=== PATIENT | female | born 1995 ===

== ENCOUNTER 2018-03-21 02:55 | Inpatient (IN) | payer BC ==
--- NOTE | 2018-03-21 08:13 | HP ---
General Information - Reason for Visit Labor evaluation - General Information Maternal Age: 22 Grav: 1 Para: 1 SAB: 0 IEA: 0 Estimated Due Date: 03/22/18 Determined By: LMP Gestational Age in Weeks/Days: 39-/7 Maternal Blood Type and Rh: O Positive - Results this Serology/RPR Result: Non-Reactive Rubella Result: Immune HBsAg Result: Negative HIV Result: Negative GBS Culture Result: Negative Past Medical History Delivery History: See Records Delivery History Comment: Primip Pertinent Past Medical History: See Records Past Medical History Comment: H/O Depression/Anxiety. Has used Citalopram in the past Pertinent Past Surgical History: None Pertinent Family History: See Records Family History Comment: Mother and Father both A&W Brother: . Leukemia PGM: . Unknown PGF: . Old age MGM: . Cancer MGF: . Unknown - Antepartal Records Antepartal Records: Reviewed, Uncomplicated Review of Systems Constitutional: Uncomfortable - with UCs. Coping well CV Complaint: No Respiratory: Shortness of Breath: No Gastrointestinal: No Nausea/Vomiting, Normal Bowel Movement Genitourinary: No Dysuria, No Leaking Fluid, Spotting - s/p VE Musculoskeletal: Contractions Neurological: No Headache, No Visual Changes Movement: Normal Exam Allergies/Adverse Reactions: Allergies buspirone [From BuSpar] Allergy (Verified 03/20/18 21:47) Hives Vital Signs 03/21/18 05:35 Temperature 97.6 F Pulse Rate 58 Respiratory 16 Rate Blood Pressure 134/80 (mmHg) - Measurements Height: 5 ft 8 in Weight: 179 lb Weight in lbs: 179.720049 Body Mass Index (BMI): 27.2 Pre- Weight: 143 lb Weight Gained This : 36 lbs and 0 ozs - Exam Breast: Breast Exam Deferred CVA: No CVA Tenderness Extremities: No Edema Heart: Normal Rhythm/Heart Sounds HEENT: No Significant Findings Lungs: Clear Bilaterally Rectal: Rectal Exam Deferred Reflexes: DTR 2+ Thyroid: No Thyromegaly - Abdominal Exam Abdomen Exam: Non-Tender, Fundal Height Consistent with Dates - Ultrasound/Biophysical Profile Ultrasound Status: Not Done Targeted Exam Findings See L&D Outpatient Visit Provider Note for Findings: Yes Estimated Weight: 7.5lbs by [place] Cervical Exam: 3cm Effacement: 90% Station: -1 Presenting Part: Vertex Membrane Status: Intact Sterile Speculum Exam: Not done Bleeding/Discharge: Bloody Show - s/p VE EFM Findings - External Monitor Findings Baseline Heart Rate: 130 External Monitor Findings: Accelerations Present, No Pattern of Variable or Late Decelerations, Variability Moderate, Baseline Stable External Monitor Findings Comment: No evidence of metabolic acidemia Contractions: Irregular, Mild, Moderate Contraction Frequency: q 2-5 min Assessment/Plan - Assessment IUP at 39-6/7 with prolonged latent labor > 24 hours No evidence of metabolic acidemia - Plan Plan: Observe Plan Comment: P: Again reviewed options for ongoing management of prolonged latent labor including ongoing expectant management vs. trial of therapeutic rest with IV pain medication vs. active management with augmentation and pain management as needed. Pt and FOB with a strong desire to allow labor to happen naturally. Would prefer to stay at [facility] instead of returning home as she's more comfortable being monitored. Aware that at any point other options are still available to her. Will continue to change position, consider trial of tub for relaxation and rest. Enc small snacks and lots of PO fluids. Continue to monitor. - Date/Time of Admission Date of Admission: 03/21/18 Time of Admission: 08:00
--- NOTE | 2018-03-21 13:47 | PN ---
Progress Note - Progress Note Date of Service: 03/21/18 Note: S: Pt has napped, snacked, walked, tried the tub. and mother at bedside and very supportive. She's in good spirits and coping well. Still reports a strong preference to allow labor to take its own course without intervention O: BP 117/66 HR 88 RR 18 T 97.6 SpO2 99% on RA FHT: 135bpm. No decels on doptones UCs q 2-5 min. Mild to moderate VE: 3-4cm/100%/vtx -1. Intact BOW A: IUP at 39-6/7 with prolonged early labor No evidence of metabolic acidemia P: Reassurance given that expectant management still appropriate. Discussed pain relief options available PRN. Also discussed that augmentation may be indicated at some point which pt and FOB are open to just not yet. Continue to provide space and support for normal physiologic in the presence of prolonged latent labor.
--- NOTE | 2018-03-21 17:23 | PN ---
Progress Note - Progress Note Date of Service: 03/21/18 Note: S: Pt reports UCs are more intense. ?s about options for augmentation as she's getting tired and really wants to meet her baby sooner rather than later O: BP 103/63 HR 65 RR 20 T 97.7 FHT: 140bpm. Moderate variability. +Accels. No decels UCs q 2-5, moderate VE: 4-5/100%/vtx -1, intact A: IUP at 39-6/7 with prolonged latent labor, slow, steady progress No evidence of metabolic acidemia P: Reassured given cervical change. Discussed augmentation via pitocin vs. amniotomy and all ?s answered. Pt to wait for FOB to return from dinner to discuss with him. Will let us know her preference. For now will continue expectant management.
[2018-03-21] MEDS ORDERED: Oxytocin in LR* 20 UNITS/1,000 ML BAG IVPB SCH ×2 (18:00→22:00)
[2018-03-21 18:25] LABS: ABS Basophils 0 10^3/ul (0-0.2); ABS Eosinophils 0 10^3/ul (0-0.6); ABS Lymphocytes 1.3 10^3/ul (1.0-4.8); ABS Monocytes 0.6 10^3/ul (0-0.8); ABS Neutrophils 8.4 10^3/ul (1.5-7.7); ABS Nucleated RBC 0 10^3/ul; Eosinophil % 0.3 % (0-6); Hematocrit 38 % (35-47); Hemoglobin 13.2 g/dl (12.0-16.0); Lymphocyte % 12.4 % (25-47); Mean Corpuscular HGB Conc 35 g/dl (31-36); Mean Corpuscular Hemoglobin 30 pg (27-31); Mean Corpuscular Volume 85 fL (80-97); Mean Platelet Volume 8.2 um3 (7.4-10.4); Nucleated Red Blood Cells % 0; Platelet Count 214 10^3/ul (150-450); Red Blood Count 4.47 10^6/ul (4.00-5.40); Red Cell Distribution Width 15 % (10.5-15); White Blood Count 10.4 10^3/ul (3.5-10.8)
--- NOTE | 2018-03-21 19:47 | PN ---
Progress Note - Progress Note Date of Service: 03/21/18 Note: S: Pt and FOB opted for IV pitocin augmentation. UCs much more regular and powerful at 4mu/min. Pt breathing through. FOB and mother remain at bedside coaching and supporting her. O: BP 103/63 HR 63 T 97 FHT: 145bpm. Moderate variability. +Accels. No decels UCs q 2-3 min on 4mu/min IV pitocin VE: 5-6/100%/vtx -1 A: IUP at 39-6/7 in active labor No evidence of metabolic acidemia P: Continue IV pitocin augmentation. Bedside support and reassurance given.
[2018-03-21] MEDS ORDERED: Ibuprofen TAB* 600 MG ONE ×2 (21:09→21:12)
[2018-03-21] MEDS ORDERED: Acetaminophen TAB* 325 MG PO PRN (21:45)
[2018-03-21] MEDS ORDERED: Misoprostol TAB* 200 MCG PR ONE (21:45)
[2018-03-21] MEDS ORDERED: Glycerin ADULT SUPP PR PRN (21:45)
[2018-03-21] MEDS ORDERED: Witch Hazel PAD* JAR TOPICAL PRN (21:45)
[2018-03-21] MEDS ORDERED: Dibucaine 1% 28.35 GM TUBE PR PRN (21:45)
--- NOTE | 2018-03-21 21:53 | PROCNOTE ---
[facility] OB: Delivery Note - Delivery A Date of : 03/21/18 Time of : 20:50 [place] Sex: Female Score 1 Minute: 9 Score 5 Minutes: 9 Gestational Age in Weeks and Days at Delivery: 39 Weeks and 6 Days Delivery Method: Spontaneous Vaginal Labor: Spontaneous - Augmentation with IV pitocin Did Patient attempt ?: N/A, No Previous Amniotic Fluid: Clear Estimated Blood Loss: 600 Anesthesia/Analgesia: None Delivered By: Christophe Gamble - Nursery Level of Nursery: Regular/Bedside - Perineum Perineal Injury: 1st Degree Perineal Injury Comment: Repair of 1st degree vaginal laceration with 3-0 Rapide under 1% lidocaine Perineal Repair: By Delivering Practioner - Events Delivery Events of Note: Pitocin During Labor - Augmentation, Protracted/Long Labor - Prolonged early labor > 48 hours. Active labor 5 hours, 55 min - Risk for Falls Delivered OB Patient- Risk for Falls: Heavy Bleeding Fall Risk: Patient is at High Risk for Falls - Additional Delivery Notes Additional Delivery Notes: Pt admitted with prolonged latent labor > 48 hours. Preferred ongoing expectant management. At 4-5cm patient agreed to trial augmentation with IV pitocin which led to onset active labor. Active phase 5 hours, 55 min. Pushed x 10 min. liveborn female. Slow, controlled delivery of head. OA to CARY. Shoulders followed easily with maternal push. Loose nuchal cord x 1. delivered through. [place] vigorous with spontaneous cry. HR>110bpm. Delivered to maternal abdomen. Cord clamped x 2 and cut by pt's mother after pulsations ceased. Spontaneous delivery intact placenta. Trailing membranes very adherent. Teased out with a ring forcep over several minutes with continued brisk bleeding. IV pitocin infusing. 800mcg Cytotec given per rectum x 1. Membranes finally appeared complete and fundus firmed to massage and remained firm. Bleeding resolved. Repair of 1st degree laceration as above. Pt tolerated well. EBL 600mL. At time of note mother and in stable condition. Planning to breast feed.
[2018-03-22 07:10] LABS: ABS Basophils 0 10^3/ul (0-0.2); ABS Eosinophils 0.1 10^3/ul (0-0.6); ABS Lymphocytes 1.8 10^3/ul (1.0-4.8); ABS Monocytes 0.8 10^3/ul (0-0.8); ABS Neutrophils 8.4 10^3/ul (1.5-7.7); ABS Nucleated RBC 0 10^3/ul; Eosinophil % 0.8 % (0-6); Hematocrit 29 % (35-47); Hemoglobin 10.3 g/dl (12.0-16.0); Lymphocyte % 15.9 % (25-47); Mean Corpuscular HGB Conc 36 g/dl (31-36); Mean Corpuscular Hemoglobin 30 pg (27-31); Mean Corpuscular Volume 85 fL (80-97); Mean Platelet Volume 8.2 um3 (7.4-10.4); Nucleated Red Blood Cells % 0.1; Platelet Count 185 10^3/ul (150-450); Red Blood Count 3.41 10^6/ul (4.00-5.40); Red Cell Distribution Width 15 % (10.5-15); White Blood Count 11.1 10^3/ul (3.5-10.8)
[2018-03-22] MEDS: Docusate CAP* 100 MG PO SCH ×3 (08:33→19:53)
[2018-03-22] MEDS: Simethicone TAB* 80 MG TAB.CHEW PO SCH ×2 (08:34→14:27)
[2018-03-22] MEDS ORDERED: Ferrous Gluconate TAB* 324 MG TAB PO SCH (09:00)
[2018-03-22 20:07] VITALS: BP 99/64
[2018-03-22] MEDS: Ibuprofen TAB* 600 MG PO PRN (22:06)
[2018-03-23] MEDS: Ibuprofen TAB* 600 MG PO PRN (08:41)
== END 2018-03-23 14:14 | disposition home or self-care (01) | DRG 560 ==
LOC: MCHOBOUT 02:55 → MCHOB 07:58
PROVIDERS: ADMIT Midwife; ATTEND Midwife
PROC: 10E0XZZ Delivery of Products of Conception, External Approach (ICD-10-PCS; principal; 2018-03-21)
PROC: 0HQ9XZZ Repair Perineum Skin, External Approach (ICD-10-PCS; 2018-03-21)
DX: O77.0 Labor and delivery complicated by meconium in amniotic fluid (principal); O63.0 Prolonged first stage (of labor); O70.0 First degree perineal laceration during delivery; O69.81X0 Labor and delivery complicated by cord around neck, without compression, not applicable or unspecified; O99.344 Other mental disorders complicating childbirth; F41.8 Other specified anxiety disorders; O90.81 Anemia of the puerperium; D64.9 Anemia, unspecified; Z3A.39 39 weeks gestation of pregnancy; Z37.0 Single live birth
CPT/HCPCS: 36415; 85025; 86850; 86900; 86901; A9270-GY